=== PATIENT | female | born 1985 | race Caucasian/White ===

== ENCOUNTER 2017-07-14 08:48 | Emergency (ER) | payer OTHER ==
[~2017-07-14] VITALS: Ht 167.6 cm; Wt 73.5 kg
[2017-07-14 09:24] LABS: HEMATOCRIT 37.2 % (36.0-46.0); HEMOGLOBIN 13.3 G/DL (11.9-15.5); MCH 30.8 PG (29.0-34.0); MCHC 35.8 G/DL (30.0-36.0); MCV 86.1 FL (83-99); PLATELET COUNT 151 K/uL (156-360); RBC DIS.WIDTH-CV 11.9 % (11.8-14.6); RBC DIS.WIDTH-SD 37.3 % (39-53); RED BLOOD COUNT 4.32 M/uL (3.80-5.20); WHITE BLOOD COUNT 6.3 K/uL (4.1-10.2)
[2017-07-14 09:33] LABS: ALBUMIN 4.2 g/dL (3.2-4.8); CHLORIDE 108 mEq/L (99-109); POTASSIUM 4.3 mEq/L (3.7-5.4); SODIUM 138 mEq/L (136-147)
[2017-07-14 09:35] LABS: GLUCOSE 96 mg/dL (70-99); TOTAL PROTEIN 6.4 g/dL (6.4-8.3)
[2017-07-14 09:37] LABS: TOTAL BILIRUBIN 0.8 mg/dL (0.0-1.0)
[2017-07-14 09:39] LABS: ALKALINE PHOSPHATASE 60 IU/L (3-129); CREATININE 0.7 mg/dL (0.6-1.3); GFR ESTIMATE (CALCULATED) > 59 mL/min/
[2017-07-14 09:40] LABS: UREA NITROGEN (BUN) 6 mg/dL (9-23)
[2017-07-14 09:41] LABS: AST (GOT) 14 IU/L (2-34)
[2017-07-14 09:42] LABS: ALT (GPT) 18 IU/L (3-49)
[2017-07-14 10:06] LABS: QUANTITATIVE HCG 64180.8 MIU/ML
[2017-07-14 11:16] LABS: APPEARANCE CLEAR ((CLEAR)); BILIRUBIN NEGATIVE; BLOOD NEGATIVE; COLOR STRAW ((YELLOW)); GLUCOSE (STRIP) NEGATIVE; KETONES NEGATIVE; LEUKOCYTES NEGATIVE; NITRITE NEGATIVE; PROTEIN (STRIP) NEGATIVE; SPECIFIC GRAVITY 1.009 (1.000-1.030); UCUL ADDED? NO; UROBILINOGEN 0.2 MG/DL (0.2-1.0)
[2017-07-14 12:11] VITALS: BP 120/72
== END 2017-07-14 12:37 | disposition home or self-care (01) ==
LOC: EME 08:48
PROVIDERS: Emergency Medicine Emergency Medical Services
DX: O20.0 Threatened abortion (principal); Z3A.08 8 weeks gestation of pregnancy; Z88.1 Allergy status to other antibiotic agents
CPT/HCPCS: 76801; 80053; 81003; 84702; 85027; 99281; 99284